=== PATIENT | male | born 1950 | race Caucasian/White ===

== ENCOUNTER 2024-08-18 17:33 | Inpatient (IN) | payer MEDICARE ==
[2024-08-18] MEDS: ACETAMINOPHEN TAB 500 MG TAB PO STA (18:23)
[2024-08-18] MEDS: LACTATED RINGERS 1,000 ML IV SCH (18:26)
[2024-08-18 18:34] LABS: Basophils # (A) 0.08 10*3/uL (0.00-0.10); Basophils % (A) 0.5 %; Eosinophils # (A) 0.02 10*3/uL (0.04-0.35); Eosinophils % (A) 0.1 %; HCT 40.1 % (39.6-50.0); HGB 13.6 g/dL (13.0-17.0); Lymphocytes # (A) 0.76 10*3/uL (0.90-5.00); Lymphocytes % (A) 4.9 %; MCH 29.4 pg (27.0-32.0); MCHC 33.9 g/dL (32.0-37.0); MCV 86.8 fL (80.0-97.0); Monocytes # (A) 0.85 10*3/uL (0.20-1.00); Monocytes % (A) 5.5 %; Neutrophils # (A) 13.64 10*3/uL (1.80-7.70); Neutrophils % (A) 88.7 %; Platelet Count 179 10*3/uL (140-440); RBC 4.62 10*6/uL (4.40-5.60); RDW 15.9 % (11.5-14.5); WBC 15.40 10*3/uL (4.50-10.00)
[2024-08-18 18:51] LABS: ALT 19 U/L (4-49); AST 23 U/L (17-59); African American GFR (CKD) 37 (>60 ml/min/1.73 sqM); Albumin 4.2 g/dL (3.5-5.0); Alkaline Phosphatase 80 U/L (38-126); Anion Gap 15 mmol/L; Blood Urea Nitrogen 48 mg/dL (9-20); Calcium 9.1 mg/dL (8.4-10.2); Carbon Dioxide 21 mmol/L (22-30); Chloride 95 mmol/L (98-107); Glucose 362 mg/dL (74-99); Non-African American GFR(CKD) 32 (>60 ml/min/1.73 sqM); Potassium 3.8 mmol/L (3.5-5.1); Sodium 131 mmol/L (137-145); Total Protein 7.1 g/dL (6.3-8.2)
--- NOTE | 2024-08-18 18:59 | ED ---
Fever HPI - General Chief Complaint: Fever Stated Complaint: Weakness, chills Time Seen by Provider: 08/18/24 17:50 Source: family Mode of arrival: ambulatory Limitations: no limitations - History of Present Illness Initial Comments: 74-year-old male past medical history of hypertension, diabetes, BPH with retention who presents emergency department with tremors. Patient began having shakes throughout his whole body which started this morning. He was found to have a very high fever once he arrived to the hospital. Patient concern for UTI as he recently started straight cathing 1 month ago. He does report that he had a significant amount of blood in his straight cath today. No nausea or vomiting. No abdominal pain. No chest pain or difficulty breathing. He did not take anything for his fever before coming in. No other alleviating, precipitating or modifying factors - Related Data Home Medications Medication Instructions Recorded Confirmed Calcium Carbonate [Calcium] 600 mg PO DAILY 08/18/24 08/18/24 Cinnamon Bark [Cinnamon] 500 mg PO DAILY 08/18/24 08/18/24 Empagliflozin [Jardiance] 10 mg PO DAILY 08/18/24 08/18/24 Insulin Glargine,Hum.rec.anlog 40 units SQ HS 08/18/24 08/18/24 [Lantus Solostar Pen] Metoprolol Tartrate [Lopressor] 100 mg PO BID 08/18/24 08/18/24 Multivitamins, Thera [Multivitamin 1 tab PO DAILY 08/18/24 08/18/24 (formulary)] [place]-3/Dha/Epa/Fish Oil [Fish Oil 1 cap PO DAILY 08/18/24 08/18/24 1,000 mg Softgel] Rosuvastatin [Crestor] 10 mg PO HS 08/18/24 08/18/24 Tamsulosin [Flomax] 0.4 mg PO DAILY 08/18/24 08/18/24 allopurinoL [Zyloprim] 100 mg PO DAILY 08/18/24 08/18/24 amLODIPine [Norvasc] 10 mg PO DAILY 08/18/24 08/18/24 buPROPion XL [Wellbutrin XL] 150 mg PO DAILY 08/18/24 08/18/24 cloNIDine HCL 0.2 mg PO BID 08/18/24 08/18/24 glipiZIDE [Glucotrol] 5 mg PO BID 08/18/24 08/18/24 hydroCHLOROthiazide [Hydrodiuril] 25 mg PO DAILY 08/18/24 08/18/24 lisinopriL 40 mg PO DAILY 08/18/24 08/18/24 metFORMIN HCL 1,000 mg PO BID 08/18/24 08/18/24 Allergies Allergy/AdvReac Type Severity Reaction Status Date / Time No Known Allergies Allergy Verified 08/18/24 21:21 Review of Systems ROS Statement: Those systems with pertinent positive or pertinent negative responses have been documented in the HPI. ROS Other: All systems not noted in ROS Statement are negative. Past Medical History Past Medical History: Diabetes Mellitus, Hyperlipidemia, Hypertension, Prostate Disorder History of Any Multi-Drug Resistant Organisms: None Reported Past Surgical History: Unable to Obtain Past Psychological History: No Psychological Hx Reported Smoking Status: Never smoker Past Alcohol Use History: None Reported Past Drug Use History: None Reported - Past Family History Mother Family Medical History: Myocardial Infarction ([place]) Father Family Medical History: CVA/TIA General Exam Limitations: no limitations General appearance: alert, other (Tremors) Head exam: Present: atraumatic, normocephalic, normal inspection Eye exam: Present: normal appearance, PERRL, EOMI. Absent: scleral icterus, conjunctival injection, periorbital swelling ENT exam: Present: normal exam, mucous membranes moist Neck exam: Present: normal inspection. Absent: tenderness, meningismus, lymphadenopathy Respiratory exam: Present: normal lung sounds bilaterally. Absent: respiratory distress, wheezes, rales, rhonchi, stridor Cardiovascular Exam: Present: normal rhythm, tachycardia GI/Abdominal exam: Present: soft, normal bowel sounds. Absent: distended, tenderness, guarding, rebound, rigid Neurological exam: Present: alert, oriented X3 Skin exam: Present: warm, diaphoretic Course Vital Signs 08/18/24 08/18/24 08/18/24 17:46 18:04 19:35 Temperature 104.9 F H 102.9 F H Pulse Rate 112 H 108 H 94 Respiratory 18 18 Rate Blood Pressure 140/66 109/54 O2 Sat by Pulse 94 L 93 L 93 L Oximetry 08/18/24 08/18/24 08/18/24 19:37 20:40 22:33 Temperature 101.1 F H 100.2 F H 99.2 F Pulse Rate 90 81 Respiratory 16 18 Rate Blood Pressure 119/64 104/50 O2 Sat by Pulse 95 96 Oximetry Medical Decision Making - Medical Decision Making Was pt. sent in by a medical professional or institution (, PA, VIDEO COORDINATOR, urgent care, hospital, or jail...) When possible be specific @ -No Did you speak to anyone other than the patient for history (EMS, parent, family, police, friend...)? What history was obtained from this source @ -Spoke with the for history Did you review nursing and triage notes (agree or disagree)? Why? @ -I reviewed and agree with nursing and triage notes Were old charts reviewed (outside hosp., previous admission, EMS record, old EKG, old radiological studies, urgent care reports/EKG's, jail records)? Report findings @ -No old charts were reviewed Differential Diagnosis (chest pain, altered mental status, abdominal pain women, abdominal pain men, vaginal bleeding, weakness, fever, dyspnea, syncope, headache, dizziness, GI bleed, back pain, seizure, CVA, palpatations, mental health, musculoskeletal)? @ -Differential Fever: Pneumonia, viral URI, endocarditis, myocarditis, pericarditis, otitis, sinusitis, peritonsillar Abscess, retropharyngeal Abscess, epiglottitis, peritonitis, appendicitis, Mariangel cystitis, diverticulitis, hepatitis, colitis, UTI, PID, TOA, pyelonephritis, prostatitis, epididymitis, meningitis, encephalitis, pulmonary embolism, CVA, thyroid storm, pancreatitis, adrenal crisis, cavernous sinus thrombosis, this is not meant to be an all-inclusive list. EKG interpreted by me (3pts min.). @ -Yes and demonstrates sinus tachycardia with a rate of 107. MI interval 132. QRS 103. QTc of 388. No acute ST segment elevations or depressions X-rays interpreted by me (1pt min.). @ -None done CT interpreted by me (1pt min.). @ -None done U/S interpreted by me (1pt. min.). @ -None done What testing was considered but not performed or refused? (CT, X-rays, U/S, labs)? Why? @ -None What meds were considered but not given or refused? Why? @ -None Did you discuss the management of the patient with other professionals (professionals i.e. , PA, VIDEO COORDINATOR, lab, RT, psych nurse, psych social worker, surgical instrument mechanic, teacher, information technology officer, medical case manager)? Give summary @ -Spoke with Sheet for admission Was smoking cessation discussed for >3mins.? @ -No Was critical care preformed (if so, how long)? @ -No Were there social determinants of health that impacted care today? How? (Homelessness, low income, unemployed, alcoholism, drug addiction, transportation, low edu. Level, literacy, decrease access to med. care, shelter, rehab)? @ -No Was there de-escalation of care discussed even if they declined (Discuss DNR or withdrawal of care, Hospice)? DNR status @ -No What co-morbidities impacted this encounter? (DM, HTN, Smoking, COPD, CAD, Can cer, CVA, ARF, Chemo, Hep., AIDS, mental health diagnosis, sleep apnea, morbid obesity)? @ -Urinary retention with straight cath history Was patient admitted / discharged? Hospital course, mention meds given and route, prescriptions, significant lab abnormalities, going to OR and other pertinent info. @ -Upon arrival patient seen and evaluated in bed 3. Thorough history and physical exam was performed. IV access was established. Patient was initiated on a 2500 cc bolus of lactated Ringer's which is the appropriate sepsis bolus for the patient's weight. Laboratory studies are conducted. Straight cath is performed which demonstrates UTI. Patient was given a dose of Rocephin. I did recommend admission. Blood cultures were obtained as well as urine cultures. Patient is awaiting a bed on the floor in stable condition Undiagnosed new problem with uncertain prognosis? @ -No Drug Therapy requiring intensive monitoring for toxicity (Heparin, Nitro, Insulin, Cardizem)? @ -No Were any procedures done? @ -No Diagnosis/symptom? @ -Acute tremor, acute pyrexia, UTI with sepsis, history of straight cath Acute, or Chronic, or Acute on Chronic? @ -Acute Uncomplicated (without systemic symptoms) or Complicated (systemic symptoms)? @ -Complicated Side effects of treatment? @ -No Exacerbation, Progression, or Severe Exacerbation? @ -No Poses a threat to life or bodily function? How? (Chest pain, [place], [place], pneumonia, PE, COPD, DKA, ARF, appy, cholecystitis, CVA, Diverticulitis, Homicidal, Suicidal, threat to staff... and all critical care pts) @ -Yes this patient does meet sepsis criteria - Lab Data Result diagrams: 08/18/24 18:20 08/18/24 18:20 Lab Results 08/18/24 08/18/24 08/18/24 Range/Units 18:20 18:20 18:20 WBC 15.40 H (4.50-10.00) 10*3/uL RBC 4.62 (4.40-5.60) 10*6/uL Hgb 13.6 (13.0-17.0) g/dL Hct 40.1 (39.6-50.0) % MCV 86.8 (80.0-97.0) fL MCH 29.4 (27.0-32.0) pg MCHC 33.9 (32.0-37.0) g/dL Plt Count 179 (140-440) 10*3/uL MPV 12.5 H (9.5-12.2) fL Immature Gran % (Auto) 0.3 % Neutrophils % 88.7 % Lymphocytes % 4.9 % Monocytes % 5.5 % Eosinophils % 0.1 % Basophils % 0.5 % Immature Gran # 0.05 H (0.00-0.04) 10*3/uL Neutrophils # 13.64 H (1.80-7.70) 10*3/uL Lymphocytes # 0.76 L (0.90-5.00) 10*3/uL Monocytes # 0.85 (0.20-1.00) 10*3/uL Eosinophils # 0.02 L (0.04-0.35) 10*3/uL Basophils # 0.08 (0.00-0.10) 10*3/uL Sodium 131 L (137-145) mmol/L Potassium 3.8 (3.5-5.1) mmol/L Chloride 95 L (98-107) mmol/L Carbon Dioxide 21 L (22-30) mmol/L Anion Gap 15 mmol/L BUN 48 H (9-20) mg/dL Creatinine 1.98 H (0.66-1.25) mg/dL Est GFR (CKD-EPI)AfAm 37 (>60 ml/min/1.73 sqM) Est GFR (CKD-EPI)NonAf 32 (>60 ml/min/1.73 sqM) Glucose 362 H (74-99) mg/dL Lactic Ac Sepsis Rflx Plasma Lactic Acid Kaarn 2.9 H* (0.7-2.0) mmol/L Calcium 9.1 (8.4-10.2) mg/dL Total Bilirubin 0.8 (0.2-1.3) mg/dL AST 23 (17-59) U/L ALT 19 (4-49) U/L Alkaline Phosphatase 80 (38-126) U/L Total Protein 7.1 (6.3-8.2) g/dL Albumin 4.2 (3.5-5.0) g/dL Urine Color Urine Appearance (Clear) Urine pH (5.0-8.0) Ur Specific Somis (1.001-1.035) Urine Protein (Negative) Urine Glucose (UA) (Negative) Urine Ketones (Negative) Urine Blood (Negative) Urine Nitrite (Negative) Urine Bilirubin (Negative) Urine Urobilinogen (<2.0) mg/dL Ur Leukocyte Esterase (Negative) Urine RBC (0-5) /hpf Urine WBC (0-5) /hpf Urine Bacteria (None) /hpf Urine Mucus (None) /hpf 08/18/24 08/18/24 Range/Units 18:39 18:53 WBC (4.50-10.00) 10*3/uL RBC (4.40-5.60) 10*6/uL Hgb (13.0-17.0) g/dL Hct (39.6-50.0) % MCV (80.0-97.0) fL MCH (27.0-32.0) pg MCHC (32.0-37.0) g/dL Plt Count (140-440) 10*3/uL MPV (9.5-12.2) fL Immature Gran % (Auto) % Neutrophils % % Lymphocytes % % Monocytes % % Eosinophils % % Basophils % % Immature Gran # (0.00-0.04) 10*3/uL Neutrophils # (1.80-7.70) 10*3/uL Lymphocytes # (0.90-5.00) 10*3/uL Monocytes # (0.20-1.00) 10*3/uL Eosinophils # (0.04-0.35) 10*3/uL Basophils # (0.00-0.10) 10*3/uL Sodium (137-145) mmol/L Potassium (3.5-5.1) mmol/L Chloride (98-107) mmol/L Carbon Dioxide (22-30) mmol/L Anion Gap mmol/L BUN (9-20) mg/dL Creatinine (0.66-1.25) mg/dL Est GFR (CKD-EPI)AfAm (>60 ml/min/1.73 sqM) Est GFR (CKD-EPI)NonAf (>60 ml/min/1.73 sqM) Glucose (74-99) mg/dL Lactic Ac Sepsis Rflx Y Plasma Lactic Acid Karan (0.7-2.0) mmol/L Calcium (8.4-10.2) mg/dL Total Bilirubin (0.2-1.3) mg/dL AST (17-59) U/L ALT (4-49) U/L Alkaline Phosphatase (38-126) U/L Total Protein (6.3-8.2) g/dL Albumin (3.5-5.0) g/dL Urine Color Colorless Urine Appearance Cloudy (Clear) Urine pH 5.5 (5.0-8.0) Ur Specific Somis 1.020 (1.001-1.035) Urine Protein Trace H (Negative) Urine Glucose (UA) 4+ H (Negative) Urine Ketones Negative (Negative) Urine Blood Moderate H (Negative) Urine Nitrite Negative (Negative) Urine Bilirubin Negative (Negative) Urine Urobilinogen <2.0 (<2.0) mg/dL Ur Leukocyte Esterase Large H (Negative) Urine RBC 9 H (0-5) /hpf Urine WBC 147 H (0-5) /hpf Urine Bacteria Rare H (None) /hpf Urine Mucus Rare H (None) /hpf Disposition Clinical Impression: Sepsis, UTI (urinary tract infection), Tachycardia, Leukocytosis Disposition: ADMITTED IP TO THIS HOSP Condition: Stable Is patient prescribed a controlled substance at d/c from ED?: No Time of Disposition: 20:09 Decision to Admit Reason: Admit from EC Decision Date: 08/18/24 Decision Time: 20:09
[2024-08-18 19:00] LABS: Bacteria,Urine Rare /hpf; Bilirubin,Urine Negative (Negative); Blood,Urine Moderate (Negative); Color,Urine Colorless; Glucose,Urine (UA) 4+ (Negative); Ketones,Urine Negative (Negative); Leukocyte Esterase,Urine Large (Negative); Mucus,Urine Rare /hpf; Nitrite,Urine Negative (Negative); PH, Urine 5.5 (5.0-8.0); Protein,Urine Trace (Negative); RBC,Urine 9 /hpf (0-5); Specific Gravity,Urine 1.020 (1.001-1.035); Urobilinogen,Urine <2.0 mg/dL (<2.0); WBC,Urine 147 /hpf (0-5)
[2024-08-18] MEDS: cefTRIAXone IN SWFI 1,000 MG/10 ML SYRINGE IVP STA (19:30)
[2024-08-18] MEDS: IBUPROFEN 600 MG TAB PO STA (19:49)
[2024-08-18] MEDS ORDERED: NALOXONE 0.4 MG/ML 1 ML VIAL IV PRN (20:09)
[2024-08-18] MEDS: SODIUM CHLORIDE 0.9% 1,000 ML IV SCH (22:56)
[2024-08-18] MEDS: ATORVASTATIN 20 MG TAB PO SCH (23:50)
[2024-08-19 00:12] LABS: Glucose,Whole Blood 386 mg/dL (70-110)
[2024-08-19] MEDS: INSULIN GLARGINE (LANTUS) 100 UNIT/ML SYR SQ SCH (00:12)
[2024-08-19] MEDS: ACETAMINOPHEN TAB 325 MG TAB PO PRN (00:43)
[2024-08-19 05:54] LABS: Glucose,Whole Blood 175 mg/dL (70-110)
[2024-08-19] MEDS: IBUPROFEN 400 MG TAB PO PRN (06:59)
[2024-08-19 07:58] LABS: Basophils # (A) 0.05 X 10*3/uL (0.00-0.10); Basophils % (A) 0.6 %; Eosinophils # (A) 0.01 X 10*3/uL (0.04-0.35); Eosinophils % (A) 0.1 %; HCT 40.8 % (39.6-50.0); HGB 13.3 g/dL (13.0-17.0); Immature Grans, Automated 0.40 %; Lymphocytes # (A) 0.73 X 10*3/uL (0.90-5.00); Lymphocytes % (A) 9.1 %; MCH 29.1 pg (27.0-32.0); MCHC 32.6 g/dL (32.0-37.0); MCV 89.3 FL (80.0-97.0); Monocytes # (A) 0.76 X 10*3/uL (0.20-1.00); Monocytes % (A) 9.4 %; NRBC Per 100 WBC 0 X 10*3/uL (0.00-0.01); Neutrophils # (A) 6.47 X 10*3/uL (1.80-7.70); Neutrophils % (A) 80.4 %; Platelet Count 163 X 10*3/uL (140-440); RBC 4.57 X 10*6/uL (4.40-5.60); RDW 16.0 % (11.5-14.5); WBC 8.05 X 10*3/uL (4.50-10.00)
[2024-08-19 08:01] LABS: Anion Gap 12.20 mmol/L (4.00-12.00); BUN/Creat Ratio 21.81 Ratio (12.00-20.00); Blood Urea Nitrogen 34.9 mg/dL (9.0-27.0); Calcium 8.8 mg/dL (8.7-10.3); Carbon Dioxide 25.8 mmol/L (21.6-31.8); Chloride 101 mmol/L (96-109); Glucose 172 mg/dL (70-110); Potassium 3.4 mmol/L (3.5-5.5); Sodium 139 mmol/L (135-145)
[2024-08-19] MEDS: TAMSULOSIN 0.4 MG CAP.ER.24H PO SCH (08:46)
[2024-08-19] MEDS: buPROPion XL 150 MG TAB.ER.24H PO SCH (08:46)
[2024-08-19] MEDS: CALCIUM CARBONATE 500 MG CHEWABLE PO SCH (08:46)
[2024-08-19] MEDS: metFORMIN 500 MG TAB PO SCH (08:46)
[2024-08-19] MEDS: DAPAGLIFLOZIN PROPANEDIOL 5 MG TABLET PO SCH (08:46)
[2024-08-19] MEDS: glipiZIDE 5 MG TAB PO SCH (08:46)
[2024-08-19 12:26] LABS: Glucose,Whole Blood 196 mg/dL (70-110)
--- NOTE | 2024-08-19 12:58 | P.GSCN ---
History of Present Illness Consult date: 08/19/24 Reason for Consult: This is a 74-year-old male history of chronic urinary retention currently being managed with clean intermittent catheterization. Patient indicated he has been experiencing fevers with chills and shakes. Subsequently presented to the ER for that. On presentation he was febrile at 104, urinalysis was concerning for UTI. He indicated last couple of days he did have an occasional difficulty with catheterization and noticed gross hematuria, which has subsequently cleared up. Since he has been in the hospital he has not noticed any gross hematuria or any issues with cathing. He is currently on ceftriaxone. No previous history of UTIs. Review of Systems - Constitutional Reports chills, Reports fever - Cardiovascular Denies chest pain, Denies shortness of breath - Gastrointestinal Reports as per HPI - Genitourinary Denies dysuria, Denies hematuria - Integumentary Denies rash, Denies unusual bruising Past Medical History Past Medical History: Diabetes Mellitus, Hyperlipidemia, Hypertension, Prostate Disorder History of Any Multi-Drug Resistant Organisms: None Reported Past Surgical History: Unable to Obtain Additional Past Surgical History / Comment(s): Cataract surgery, broken nose repair Past Psychological History: No Psychological Hx Reported Smoking Status: Never smoker Past Alcohol Use History: None Reported Past Drug Use History: None Reported - Past Family History Mother Family Medical History: Myocardial Infarction ([place]) Father Family Medical History: CVA/TIA Medications and Allergies Home Medications Medication Instructions Recorded Confirmed Type Calcium Carbonate [Calcium] 600 mg PO DAILY 08/18/24 08/18/24 History Cinnamon Bark [Cinnamon] 500 mg PO DAILY 08/18/24 08/18/24 History Empagliflozin [Jardiance] 10 mg PO DAILY 08/18/24 08/18/24 History Insulin Glargine,Hum.rec.anlog 40 units SQ HS 08/18/24 08/18/24 History [Lantus Solostar Pen] Metoprolol Tartrate [Lopressor] 100 mg PO BID 08/18/24 08/18/24 History Multivitamins, Thera [Multivitamin 1 tab PO DAILY 08/18/24 08/18/24 History (formulary)] [place]-3/Dha/Epa/Fish Oil [Fish Oil 1 cap PO DAILY 08/18/24 08/18/24 History 1,000 mg Softgel] Rosuvastatin [Crestor] 10 mg PO HS 08/18/24 08/18/24 History Tamsulosin [Flomax] 0.4 mg PO DAILY 08/18/24 08/18/24 History allopurinoL [Zyloprim] 100 mg PO DAILY 08/18/24 08/18/24 History amLODIPine [Norvasc] 10 mg PO DAILY 08/18/24 08/18/24 History buPROPion XL [Wellbutrin XL] 150 mg PO DAILY 08/18/24 08/18/24 History cloNIDine HCL 0.2 mg PO BID 08/18/24 08/18/24 History glipiZIDE [Glucotrol] 5 mg PO BID 08/18/24 08/18/24 History hydroCHLOROthiazide [Hydrodiuril] 25 mg PO DAILY 08/18/24 08/18/24 History lisinopriL 40 mg PO DAILY 08/18/24 08/18/24 History metFORMIN HCL 1,000 mg PO BID 08/18/24 08/18/24 History Allergies Allergy/AdvReac Type Severity Reaction Status Date / Time No Known Allergies Allergy Verified 08/18/24 21:21 Surgical - Exam Vital Signs Temp Pulse Resp BP Pulse Ox 104.9 F H 112 H 18 140/66 94 L 08/18/24 17:46 08/18/24 17:46 08/18/24 17:46 08/18/24 17:46 08/18/24 17:46 - General no distress, no pain - Eyes normal ocular movement, no pale - ENT normal nares, normal mucosa - Respiratory normal expansion, normal respiratory effort - Abdomen Abdomen: soft, non tender Results - Labs 08/19/24 05:15 08/19/24 05:15 Abnormal Lab Results - Last 24 Hours (Table) 08/18/24 08/18/24 08/18/24 Range/Units 18:20 18:20 18:20 WBC 15.40 H (4.50-10.00) 10*3/uL RDW (11.5-14.5) % MPV 12.5 H (9.5-12.2) fL Immature Gran # 0.05 H (0.00-0.04) 10*3/uL Neutrophils # 13.64 H (1.80-7.70) 10*3/uL Lymphocytes # 0.76 L (0.90-5.00) 10*3/uL Eosinophils # 0.02 L (0.04-0.35) 10*3/uL Sodium 131 L (137-145) mmol/L Potassium (3.5-5.5) mmol/L Chloride 95 L (98-107) mmol/L Carbon Dioxide 21 L (22-30) mmol/L Anion Gap (4.00-12.00) mmol/L BUN 48 H (9-20) mg/dL Creatinine 1.98 H (0.66-1.25) mg/dL Est GFR (CKD-EPI) (>=60) BUN/Creatinine Ratio (12.00-20.00) Ratio Glucose 362 H (74-99) mg/dL POC Glucose (mg/dL) (70-110) mg/dL Plasma Lactic Acid Karan 2.9 H* (0.7-2.0) mmol/L Urine Protein (Negative) Urine Glucose (UA) (Negative) Urine Blood (Negative) Ur Leukocyte Esterase (Negative) Urine RBC (0-5) /hpf Urine WBC (0-5) /hpf Urine Bacteria (None) /hpf Urine Mucus (None) /hpf 08/18/24 08/19/24 08/19/24 Range/Units 18:39 00:10 05:15 WBC (4.50-10.00) 10*3/uL RDW 16.0 H (11.5-14.5) % MPV 12.8 H (9.5-12.2) fL Immature Gran # (0.00-0.04) 10*3/uL Neutrophils # (1.80-7.70) 10*3/uL Lymphocytes # 0.73 L (0.90-5.00) 10*3/uL Eosinophils # 0.01 L (0.04-0.35) 10*3/uL Sodium (137-145) mmol/L Potassium (3.5-5.5) mmol/L Chloride (98-107) mmol/L Carbon Dioxide (22-30) mmol/L Anion Gap (4.00-12.00) mmol/L BUN (9-20) mg/dL Creatinine (0.66-1.25) mg/dL Est GFR (CKD-EPI) (>=60) BUN/Creatinine Ratio (12.00-20.00) Ratio Glucose (74-99) mg/dL POC Glucose (mg/dL) 386 H (70-110) mg/dL Plasma Lactic Acid Karan (0.7-2.0) mmol/L Urine Protein Trace H (Negative) Urine Glucose (UA) 4+ H (Negative) Urine Blood Moderate H (Negative) Ur Leukocyte Esterase Large H (Negative) Urine RBC 9 H (0-5) /hpf Urine WBC 147 H (0-5) /hpf Urine Bacteria Rare H (None) /hpf Urine Mucus Rare H (None) /hpf 08/19/24 08/19/24 08/19/24 Range/Units 05:15 05:53 12:24 WBC (4.50-10.00) 10*3/uL RDW (11.5-14.5) % MPV (9.5-12.2) fL Immature Gran # (0.00-0.04) 10*3/uL Neutrophils # (1.80-7.70) 10*3/uL Lymphocytes # (0.90-5.00) 10*3/uL Eosinophils # (0.04-0.35) 10*3/uL Sodium (137-145) mmol/L Potassium 3.4 L (3.5-5.5) mmol/L Chloride (98-107) mmol/L Carbon Dioxide (22-30) mmol/L Anion Gap 12.20 H (4.00-12.00) mmol/L BUN 34.9 H (9-20) mg/dL Creatinine 1.6 H (0.66-1.25) mg/dL Est GFR (CKD-EPI) 45 L (>=60) BUN/Creatinine Ratio 21.81 H (12.00-20.00) Ratio Glucose 172 H (74-99) mg/dL POC Glucose (mg/dL) 175 H 196 H (70-110) mg/dL Plasma Lactic Acid Karan (0.7-2.0) mmol/L Urine Protein (Negative) Urine Glucose (UA) (Negative) Urine Blood (Negative) Ur Leukocyte Esterase (Negative) Urine RBC (0-5) /hpf Urine WBC (0-5) /hpf Urine Bacteria (None) /hpf Urine Mucus (None) /hpf Diabetes panel 08/18/24 08/19/24 Range/Units 18:20 05:15 Sodium 131 L 139 (137-145) mmol/L Potassium 3.8 3.4 L (3.5-5.1) mmol/L Chloride 95 L 101 (98-107) mmol/L Carbon Dioxide 21 L 25.8 (22-30) mmol/L BUN 48 H 34.9 H (9-20) mg/dL Creatinine 1.98 H 1.6 H (0.66-1.25) mg/dL Glucose 362 H 172 H (74-99) mg/dL Calcium 9.1 8.8 (8.4-10.2) mg/dL AST 23 (17-59) U/L ALT 19 (4-49) U/L Alkaline Phosphatase 80 (38-126) U/L Total Protein 7.1 (6.3-8.2) g/dL Albumin 4.2 (3.5-5.0) g/dL Calcium panel 08/18/24 08/19/24 Range/Units 18:20 05:15 Calcium 9.1 8.8 (8.4-10.2) mg/dL Albumin 4.2 (3.5-5.0) g/dL Pituitary panel 08/18/24 08/19/24 Range/Units 18:20 05:15 Sodium 131 L 139 (137-145) mmol/L Potassium 3.8 3.4 L (3.5-5.1) mmol/L Chloride 95 L 101 (98-107) mmol/L Carbon Dioxide 21 L 25.8 (22-30) mmol/L BUN 48 H 34.9 H (9-20) mg/dL Creatinine 1.98 H 1.6 H (0.66-1.25) mg/dL Glucose 362 H 172 H (74-99) mg/dL Calcium 9.1 8.8 (8.4-10.2) mg/dL Adrenal panel 08/18/24 08/19/24 Range/Units 18:20 05:15 Sodium 131 L 139 (137-145) mmol/L Potassium 3.8 3.4 L (3.5-5.1) mmol/L Chloride 95 L 101 (98-107) mmol/L Carbon Dioxide 21 L 25.8 (22-30) mmol/L BUN 48 H 34.9 H (9-20) mg/dL Creatinine 1.98 H 1.6 H (0.66-1.25) mg/dL Glucose 362 H 172 H (74-99) mg/dL Calcium 9.1 8.8 (8.4-10.2) mg/dL Total Bilirubin 0.8 (0.2-1.3) mg/dL AST 23 (17-59) U/L ALT 19 (4-49) U/L Alkaline Phosphatase 80 (38-126) U/L Total Protein 7.1 (6.3-8.2) g/dL Albumin 4.2 (3.5-5.0) g/dL Assessment and Plan Assessment: 74-year-old male with history of urinary retention, being managed with CIC. Presents to the hospital with UTI. No acute surgical dimension from urology standpoint. -Continue CIC x 3 - Continue IV antibiotics until cultures finalized. From urology standpoint he can be discharged once cultures finalized with a 7 days of antibiotics. Antibiotics based on culture susceptibility.
[2024-08-19] MEDS: SODIUM CHLORIDE 0.9% 1,000 ML IV SCH (14:27)
[2024-08-19 17:22] LABS: Glucose,Whole Blood 192 mg/dL (70-110)
[2024-08-19 20:01] LABS: Glucose,Whole Blood 264 mg/dL (70-110)
[2024-08-19] MEDS: FLUTICASONE NASAL 50MCG/SPRAY 16GM BTL EA NOSTRIL PRN (22:02)
[2024-08-20 05:57] LABS: Glucose,Whole Blood 104 mg/dL (70-110)
--- NOTE | 2024-08-20 09:54 | P.PN ---
Subjective Progress Note Date: 08/20/24 No acute overnight event, he is afebrile this morning. No issues with cathing. Blood culture showed no growth Objective - Vital Signs Vital signs: Vital Signs Temp 97.6 F 08/20/24 07:25 Pulse 81 08/20/24 07:25 Resp 18 08/20/24 07:25 BP 134/73 08/20/24 07:25 Pulse Ox 95 08/20/24 07:25 FiO2 Intake & Output 08/19/24 08/20/24 08/20/24 18:59 06:59 18:59 Intake Total 1038 Output Total 300 1400 Balance 738 -1400 Intake: Intake, IV Titration 800 Amount Sodium Chloride 0.9% 1, 750 000 ml @ 130 mls/hr IV . Q7H42M [facility] Rx#:[id number] cefTRIAXone 1 gm In 50 Sodium Chloride 0.9% 50 ml @ 100 mls/hr IVPB Q24HR [facility] Rx#:[id number] Oral 238 Output: Urine 300 1400 Straight 300 1400 Other: Voiding Method Self-Catheterization Self-Catheterization Self-Catheterization # Voids 2 - Constitutional General appearance: Present: no acute distress - Gastrointestinal General gastrointestinal: Present: soft. Absent: distended, tenderness - Labs CBC & Chem 7: 08/19/24 05:15 08/19/24 05:15 Labs: Abnormal Lab Results - Last 24 Hours (Table) 08/19/24 08/19/24 08/19/24 Range/Units 12:24 17:21 20:00 POC Glucose (mg/dL) 196 H 192 H 264 H (70-110) mg/dL Microbiology - Last 24 Hours (Table) 08/18/24 18:26 Blood Culture - Preliminary Blood 08/18/24 18:20 Blood Culture - Preliminary Blood Assessment and Plan Assessment: 74-year-old male with history of urinary retention, being managed with CIC. Presents to the hospital with UTI. No acute surgical dimension from urology standpoint. -Continue CIC x 3 - Continue IV antibiotics until cultures finalized. From urology standpoint he can be discharged once cultures finalized with a 7 days of antibiotics. Antibiotics based on culture susceptibility.
[2024-08-20] MEDS ORDERED: DEXTROSE 50% SYRINGE 50 ML IVP PRN ×4 (10:40→14:45)
--- NOTE | 2024-08-20 10:59 | P.HPIM ---
History of Present Illness H&P Date: 08/19/24 Chief Complaint: Straight cathing with fevers, chills, shakes This is a 74-year-old gentleman with past medical history significant for diabetes mellitus, hyperlipidemia, hypertension, BPH, chronic urinary retention, straight cathing times the last month to follow-up fevers, chills shakes and some hematuria. Presented to the ER with concern for UTI. On admission Tmax 102.2, initial WBC 15.4, bicarb 21, BUN 48, creatinine 1.98, UA reported negative nitrates, moderate blood, 4+ glucose, large leukocytes, culture reporting gram-negative bacilli. Ceftriaxone initiated with significant clinical improvement. Currently afebrile. WBC normalized, preliminary blood cultures reporting no growth after 24 hours with renal function improving. Repeat labs pending. Denies nausea vomiting or diarrhea. Denies abdominal pain. Denies flank pain. Review of Systems ROS Statement: Those systems with pertinent positive or pertinent negative responses have been documented in the HPI. ROS Other: All systems not noted in ROS Statement are negative. Past Medical History Past Medical History: Diabetes Mellitus, Hyperlipidemia, Hypertension, Prostate Disorder History of Any Multi-Drug Resistant Organisms: None Reported Past Surgical History: Unable to Obtain Additional Past Surgical History / Comment(s): Cataract surgery, broken nose repair Past Psychological History: No Psychological Hx Reported Smoking Status: Never smoker Past Alcohol Use History: None Reported Past Drug Use History: None Reported - Past Family History Mother Family Medical History: Myocardial Infarction (DC) Father Family Medical History: CVA/TIA Medications and Allergies Home Medications Medication Instructions Recorded Confirmed Type Calcium Carbonate [Calcium] 600 mg PO DAILY 08/18/24 08/18/24 History Cinnamon Bark [Cinnamon] 500 mg PO DAILY 08/18/24 08/18/24 History Empagliflozin [Jardiance] 10 mg PO DAILY 08/18/24 08/18/24 History Insulin Glargine,Hum.rec.anlog 40 units SQ HS 08/18/24 08/18/24 History [Lantus Solostar Pen] Metoprolol Tartrate [Lopressor] 100 mg PO BID 08/18/24 08/18/24 History Multivitamins, Thera [Multivitamin 1 tab PO DAILY 08/18/24 08/18/24 History (formulary)] [place]-3/Dha/Epa/Fish Oil [Fish Oil 1 cap PO DAILY 08/18/24 08/18/24 History 1,000 mg Softgel] Rosuvastatin [Crestor] 10 mg PO HS 08/18/24 08/18/24 History Tamsulosin [Flomax] 0.4 mg PO DAILY 08/18/24 08/18/24 History allopurinoL [Zyloprim] 100 mg PO DAILY 08/18/24 08/18/24 History amLODIPine [Norvasc] 10 mg PO DAILY 08/18/24 08/18/24 History buPROPion XL [Wellbutrin XL] 150 mg PO DAILY 08/18/24 08/18/24 History cloNIDine HCL 0.2 mg PO BID 08/18/24 08/18/24 History glipiZIDE [Glucotrol] 5 mg PO BID 08/18/24 08/18/24 History hydroCHLOROthiazide [Hydrodiuril] 25 mg PO DAILY 08/18/24 08/18/24 History lisinopriL 40 mg PO DAILY 08/18/24 08/18/24 History metFORMIN HCL 1,000 mg PO BID 08/18/24 08/18/24 History Allergies Allergy/AdvReac Type Severity Reaction Status Date / Time No Known Allergies Allergy Verified 08/18/24 21:21 Physical Exam Vitals: Vital Signs Temp Pulse Resp BP Pulse Ox 08/20/24 07:25 97.6 F 81 18 134/73 95 08/20/24 02:00 98.7 F 64 16 125/72 96 08/19/24 20:00 16 08/19/24 19:30 98.7 F 94 16 156/82 96 08/19/24 15:00 98.5 F 88 16 121/71 96 Intake and Output 08/19/24 08/20/24 08/20/24 22:59 06:59 14:59 Output Total 800 600 Balance -800 -600 Output: Urine 800 600 Straight 800 600 Other: Voiding Method Self-Catheterization Self-Catheterization # Voids 2 2 PHYSICAL EXAM: VITAL SIGNS: [Reviewed] GENERAL: Pleasant 74-year-old male, sitting up in bed, no acute distress HEENT: Normocephalic, atraumatic, conjunctivae normal. eyes normal. mmm. NECK: Supple no JVD. No thyroid enlargement. No LNs CARDIOVASCULAR: S1, S2 regular.. No murmur RESPIRATION: Unlabored, equal air entry, clear to auscultation. ABDOMEN: Soft, nontender . No guarding. no masses palpable. No ascites, No hepatosplenomegaly.Bowel sounds heard. LEGS: No edema. no swelling NERVOUS SYSTEM: Cranial N 2-12 grossly normal. No focal deficits. Strength and sensation grossly intact.. Skin: Warm and dry, no rash noted. Results CBC & Chem 7: 08/20/24 11:09 08/20/24 11:09 Labs: Abnormal Lab Results - Last 24 Hours (Table) 08/19/24 08/19/24 08/19/24 Range/Units 12:24 17:21 20:00 POC Glucose (mg/dL) 196 H 192 H 264 H (70-110) mg/dL Microbiology - Last 24 Hours (Table) 08/18/24 18:39 Urine Culture - Preliminary Urine,Clean Catch Gram Neg Bacilli 08/18/24 18:26 Blood Culture - Preliminary Blood 08/18/24 18:20 Blood Culture - Preliminary Blood Thrombosis Risk Factor Assmnt - Choose All That Apply Any of the Below Risk Factors Present?: No Other Risk Factors: Yes Each Risk Factor Represents 2 Points: Age 61-74 years Thrombosis Risk Factor Assessment Total Risk Factor Score: 2 Thrombosis Risk Factor Assessment Level: Low Risk Assessment and Plan Assessment: Acute gram-negative bacilli UTI, possibly secondary to straight cath. Urinary retention, straight caths. at home Acute renal injury secondary to the above, improving BPH Diabetes mellitus Hyperlipidemia, hypertension Plan: Continue on current medication regimen ,monitoring and symptomatic treatment.Gentle IV fluid hydration.Close monitoring of renal function, lytes with repeat labs in progress Maintain IV antibiotics of ceftriaxone.discharge planning in progress pending finalized cultures. Increase ambulation as tole rated. The impression and plan of care has been dictated as directed. :Ab saw patient 08/19/24. I performed a history and examination of this patient, discussed the same with the dictator. I agree with the dictator's note ,documented as a scribe. Any additional findings or plans will be noted. greater than 30 min.
[2024-08-20] MEDS: METOPROLOL TARTRATE 50 MG TAB PO SCH (11:47)
[2024-08-20] MEDS: PANTOPRAZOLE 40 MG/10 ML VIAL IVP SCH (11:47)
[2024-08-20 11:58] LABS: HCT 38.4 % (39.6-50.0); HGB 12.7 g/dL (13.0-17.0); MCH 29.2 pg (27.0-32.0); MCHC 33.1 g/dL (32.0-37.0); MCV 88.3 fL (80.0-97.0); Platelet Count 171 10*3/uL (140-440); RBC 4.35 10*6/uL (4.40-5.60); RDW 15.3 % (11.5-14.5); WBC 7.34 10*3/uL (4.50-10.00)
[2024-08-20 12:07] LABS: African American GFR (CKD) 79 (>60 ml/min/1.73 sqM); Anion Gap 11 mmol/L; Blood Urea Nitrogen 19 mg/dL (9-20); Calcium 9.0 mg/dL (8.4-10.2); Carbon Dioxide 25 mmol/L (22-30); Chloride 101 mmol/L (98-107); Glucose 271 mg/dL (74-99); Non-African American GFR(CKD) 69 (>60 ml/min/1.73 sqM); Potassium 3.3 mmol/L (3.5-5.1); Sodium 137 mmol/L (137-145)
[2024-08-20 12:32] LABS: Glucose,Whole Blood 235 mg/dL (70-110)
[2024-08-20] MEDS: INSULIN LISPRO (HumaLOG) 100 UNIT/ML 10 mL VL SQ SCH ×2 (13:17→17:44)
[2024-08-20] MEDS ORDERED: Magnesium Replacement Protocol 1 EACH MISC MISCELLANE PRN (14:48)
--- NOTE | 2024-08-20 15:47 | P.PN ---
Subjective Progress Note Date: 08/20/24 Patient seen he is doing better today as preliminary report came back E. coli in his urine he is being treated appropriately his fluids are being replaced he continues IV antibiotics await final culture for further recommendations on antibiotic. Objective - Vital Signs Vital signs: Vital Signs Temp 97.6 F 08/20/24 07:25 Pulse 81 08/20/24 07:25 Resp 18 08/20/24 07:25 BP 134/73 08/20/24 07:25 Pulse Ox 95 08/20/24 07:25 FiO2 Intake & Output 08/19/24 08/20/24 08/20/24 18:59 06:59 18:59 Intake Total 1038 120 Output Total 300 1400 1050 Balance 738 -1400 -930 Intake: Intake, IV Titration 800 Amount Sodium Chloride 0.9% 1, 750 000 ml @ 130 mls/hr IV . Q7H42M [facility] Rx#:[id number] cefTRIAXone 1 gm In 50 Sodium Chloride 0.9% 50 ml @ 100 mls/hr IVPB Q24HR [facility] Rx#:[id number] Oral 238 120 Output: Urine 300 1400 1050 Straight 300 1400 Other: Voiding Method Self-Catheterization Self-Catheterization Self-Catheterization # Voids 2 - Exam PHYSICAL EXAM: VITAL SIGNS: [Reviewed] GENERAL: Pleasant 74-year-old male, sitting up in bed, no acute distress HEENT: Normocephalic, atraumatic, conjunctivae normal. eyes normal. mmm. NECK: Supple no JVD. No thyroid enlargement. No LNs CARDIOVASCULAR: S1, S2 regular.. No murmur RESPIRATION: Unlabored, equal air entry, clear to auscultation. ABDOMEN: Soft, nontender . No guarding. no masses palpable. No ascites, No hepatosplenomegaly.Bowel sounds heard. LEGS: No edema. no swelling NERVOUS SYSTEM: Cranial N 2-12 grossly normal. No focal deficits. Strength and sensation grossly intact.. Skin: Warm and dry, no rash noted. - Labs CBC & Chem 7: 08/20/24 11:09 08/20/24 11:09 Labs: Abnormal Lab Results - Last 24 Hours (Table) 08/19/24 08/19/24 08/20/24 Range/Units 17:21 20:00 11:09 RBC (4.40-5.60) 10*6/uL Hgb (13.0-17.0) g/dL Hct (39.6-50.0) % RDW (11.5-14.5) % MPV (9.5-12.2) fL Potassium 3.3 L (3.5-5.1) mmol/L Glucose 271 H (74-99) mg/dL POC Glucose (mg/dL) 192 H 264 H (70-110) mg/dL 08/20/24 08/20/24 Range/Units 11:09 12:26 RBC 4.35 L (4.40-5.60) 10*6/uL Hgb 12.7 L (13.0-17.0) g/dL Hct 38.4 L (39.6-50.0) % RDW 15.3 H (11.5-14.5) % MPV 12.6 H (9.5-12.2) fL Potassium (3.5-5.1) mmol/L Glucose (74-99) mg/dL POC Glucose (mg/dL) 235 H (70-110) mg/dL Microbiology - Last 24 Hours (Table) 08/18/24 18:39 Urine Culture - Preliminary Urine,Clean Catch Gram Neg Bacilli 08/18/24 18:26 Blood Culture - Preliminary Blood 08/18/24 18:20 Blood Culture - Preliminary Blood Assessment and Plan (1) Leukocytosis Current Visit: Yes Status: Acute Code(s): D72.829 - ELEVATED WHITE BLOOD CELL COUNT, UNSPECIFIED SNOMED Code(s): 333300123 (2) Sepsis Current Visit: Yes Status: Acute Code(s): A41.9 - SEPSIS, UNSPECIFIED ORGANISM SNOMED Code(s): 36161583 (3) Tachycardia Current Visit: Yes Status: Acute Code(s): R00.0 - TACHYCARDIA, UNSPECIFIED SNOMED Code(s): 4544439 (4) UTI (urinary tract infection) Current Visit: Yes Status: Acute Code(s): N39.0 - URINARY TRACT INFECTION, SITE NOT SPECIFIED SNOMED Code(s): 05736931 Plan: Plan continue IV antibiotics IV hydration await final culture recommendations for antibiotic and potentially discharge tomorrow morning
[2024-08-20] MEDS: POTASSIUM CHLORIDE ER 20 MEQ TAB.ER PO STA (16:29)
[2024-08-20 17:37] LABS: Glucose,Whole Blood 225 mg/dL (70-110)
[2024-08-20 20:24] LABS: Glucose,Whole Blood 181 mg/dL (70-110)
[2024-08-21 02:06] VITALS: RESP 18
[2024-08-21 05:41] LABS: Glucose,Whole Blood 90 mg/dL (70-110)
[2024-08-21 07:57] LABS: Magnesium 1.7 mg/dL (1.5-2.4)
[2024-08-21] MEDS: amLODIPine 10 MG TAB PO SCH (08:06)
[2024-08-21 08:14] LABS: Anion Gap 11.10 mmol/L (4.00-12.00); BUN/Creat Ratio 13.55 Ratio (12.00-20.00); Blood Urea Nitrogen 14.9 mg/dL (9.0-27.0); Calcium 8.3 mg/dL (8.7-10.3); Carbon Dioxide 24.9 mmol/L (21.6-31.8); Chloride 106 mmol/L (96-109); Glucose 86 mg/dL (70-110); Potassium 3.6 mmol/L (3.5-5.5); Sodium 142 mmol/L (135-145)
[2024-08-21 12:14] LABS: Glucose,Whole Blood 205 mg/dL (70-110)
[2024-08-21 13:49] VITALS: BP 133/75; PULSE 70; TEMP 97.9
[2024-08-21] MEDS: MAGNESIUM OXIDE 400 MG TAB PO STA (13:59)
--- NOTE | 2024-08-21 15:28 | P.DS ---
Providers Date of admission: 08/18/24 20:12 Expected date of discharge: 08/21/24 Attending physician: Gino Berger Consults: 08/18/24 20:09 Consult Physician Urgent Consulting Provider: Ramirez Mclaughlin Consult Reason/Comments: acute uti, straight cath pt Do you want consulting provider notified?: Yes Primary care physician: iGno Berger Hospital Course: Final Diagnoses: Sepsis secondary to acute gram-negative bacilli UTI, possibly secondary to straight cath. Fever with leukocytosis and tachycardia, resolved Urinary retention, straight caths. at home Acute renal injury secondary to the above, improving BPH Diabetes mellitus, hemoglobin A1c 8.6 Hyperlipidemia, hypertension Hospital course:This is a 74-year-old gentleman with past medical history significant for diabetes mellitus, hyperlipidemia, hypertension, BPH, chronic urinary retention, straight cathing times the last month to follow-up fevers, chills shakes and some hematuria. Presented to the ER with concern for UTI. On admission Tmax 104.9, repeated within 15 minutes-102.2, initial WBC 15.4, bicarb 21, BUN 48, creatinine 1.98, UA reported negative nitrates, moderate blood, 4+ glucose, large leukocytes, culture reporting gram-negative bacilli. Ceftriaxone initiated with significant clinical improvement. Currently afebrile. WBC normalized, preliminary blood cultures reporting no growth after 24 hours with renal function improving. Repeat labs pending. Denies nausea vomiting or diarrhea. Denies abdominal pain. Denies flank pain. Continue on current medication regimen ,monitoring and symptomatic treatment.Gentle IV fluid hydration.Close monitoring of renal function, lytes with repeat labs in progress Maintain IV antibiotics of ceftriaxone.discharge planning in progress pending finalized cultures. Increase ambulation as tolerated. 08/20/24 Patient seen he is doing better today as preliminary report came back E. coli in his urine he is being treated appropriately his fluids are being replaced he continues IV antibiotics await final culture for further recommendations on antibiotic. continue IV antibiotics IV hydration await final culture recommendations for antibiotic and potentially discharge tomorrow morning. Significant clinical improvement. Maintained on ceftriaxone, afebrile. Denies chest pain, palpitations or shortness of breath. Denies lightheadedness, dizziness or focal deficits. Tolerating diet, denies nausea, vomiting or diarrhea. Denies abdominal pain. bicarb 24.9, BUN 14.9, creatinine 1.1. Urine culture reporting gram-negative bacilli, finalizing. Patient is eager for discharge. Will discharge patient home on Ceftin x 1 week and continue watching for final culture results. Patient will be discharged home today in a stable condition with guarded prognosis. The impression and plan of care has been dictated as directed. : I performed a history and examination of this patient, discussed the same with the dictator. I agree with the dictator's note ,documented as a scribe. Any additional findings or plans will be noted. Patient Condition at Discharge: Stable Plan - Discharge Summary New Discharge Prescriptions: New cefuroxime axetiL [Ceftin] 500 mg PO BID 7 Days #14 tab Continue Multivitamins, Thera [Multivitamin (formulary)] 1 tab PO DAILY Tamsulosin [Flomax] 0.4 mg PO DAILY Metoprolol Tartrate [Lopressor] 100 mg PO BID amLODIPine [Norvasc] 10 mg PO DAILY allopurinoL [Zyloprim] 100 mg PO DAILY Empagliflozin [Jardiance] 10 mg PO DAILY lisinopriL 40 mg PO DAILY Calcium Carbonate [Calcium] 600 mg PO DAILY glipiZIDE [Glucotrol] 5 mg PO BID buPROPion XL [Wellbutrin XL] 150 mg PO DAILY cloNIDine HCL 0.2 mg PO BID Rosuvastatin [Crestor] 10 mg PO HS metFORMIN HCL 1,000 mg PO BID hydroCHLOROthiazide [Hydrodiuril] 25 mg PO DAILY [place]-3/Dha/Epa/Fish Oil [Fish Oil 1,000 mg Softgel] 1 cap PO DAILY Insulin Glargine,Hum.rec.anlog [Lantus Solostar Pen] 40 units SQ HS Cinnamon Bark [Cinnamon] 500 mg PO DAILY Discharge Medication List Calcium Carbonate [Calcium] 600 mg PO DAILY 08/18/24 [History] Cinnamon Bark [Cinnamon] 500 mg PO DAILY 08/18/24 [History] Empagliflozin [Jardiance] 10 mg PO DAILY 08/18/24 [History] Insulin Glargine,Hum.rec.anlog [Lantus Solostar Pen] 40 units SQ HS 08/18/24 [History] Metoprolol Tartrate [Lopressor] 100 mg PO BID 08/18/24 [History] Multivitamins, Thera [Multivitamin (formulary)] 1 tab PO DAILY 08/18/24 [History] [place]-3/Dha/Epa/Fish Oil [Fish Oil 1,000 mg Softgel] 1 cap PO DAILY 08/18/24 [History] Rosuvastatin [Crestor] 10 mg PO HS 08/18/24 [History] Tamsulosin [Flomax] 0.4 mg PO DAILY 08/18/24 [History] allopurinoL [Zyloprim] 100 mg PO DAILY 08/18/24 [History] amLODIPine [Norvasc] 10 mg PO DAILY 08/18/24 [History] buPROPion XL [Wellbutrin XL] 150 mg PO DAILY 08/18/24 [History] cloNIDine HCL 0.2 mg PO BID 08/18/24 [History] glipiZIDE [Glucotrol] 5 mg PO BID 08/18/24 [History] hydroCHLOROthiazide [Hydrodiuril] 25 mg PO DAILY 08/18/24 [History] lisinopriL 40 mg PO DAILY 08/18/24 [History] metFORMIN HCL 1,000 mg PO BID 08/18/24 [History] cefuroxime axetiL [Ceftin] 500 mg PO BID 7 Days #14 tab 08/21/24 [Rx] Follow up Appointment(s)/Referral(s): Gino Berger DO [Primary Care Provider] - 09/02/24 2:40 pm Patient Instructions/Handouts: Urinary Tract Infection in Men (DC), Fever in Adults (ED), Leukocytosis (GEN) Discharge Disposition: HOME SELF-CARE
== END 2024-08-21 14:56 | disposition home or self-care (01) | DRG 698 ==
LOC: EDSEX → EC 17:33 → 6NMEDSUR 20:11 → OBSVTOIN 20:12 → 6NMEDSUR 20:30
PROVIDERS: ADMIT Family Medicine; ATTEND Family Medicine
DX: T83.518A Infection and inflammatory reaction due to other urinary catheter, initial encounter (principal); A41.51 Sepsis due to Escherichia coli [E. coli]; E11.9 Type 2 diabetes mellitus without complications; I10 Essential (primary) hypertension; N17.9 Acute kidney failure, unspecified; N39.0 Urinary tract infection, site not specified; E78.5 Hyperlipidemia, unspecified; N40.1 Benign prostatic hyperplasia with lower urinary tract symptoms; R31.0 Gross hematuria; Y84.6 Urinary catheterization as the cause of abnormal reaction of the patient, or of later complication, without mention of misadventure at the time of the procedure; Z79.84 Long term (current) use of oral hypoglycemic drugs; Z79.899 Other long term (current) drug therapy; Z82.49 Family history of ischemic heart disease and other diseases of the circulatory system; R33.8 Other retention of urine; Z98.49 Cataract extraction status, unspecified eye
CPT/HCPCS: 36415; 80048; 80053; 81001; 83036; 83605; 83735; 85025; 85027; 87040; 87077; 87086; 87186; 93005; 96361; 96374; 99285